=== PATIENT | female | born 1950 | race African-American/Black ===

== ENCOUNTER 2018-06-26 17:32 | Emergency (ER) | payer MEDICARE ==
[2018-06-26] MEDS ORDERED: Ondansetron PF 4 MG/2 ML Vial ONE (18:05)
[2018-06-26 18:34] LABS: #Basophils 0.1 thou/uL (0.0-0.2); #Eosinphils 0.3 thou/uL (0.0-0.7); #Lymphocytes 2.3 thou/uL (1.20-3.40); #Monocytes 0.6 thou/uL (0.11-0.59); #Neutrophils 2.6 thou/uL (1.40-6.50); %Basophils 1.2 % (0.0-1.0); %Eosinophils 5.4 % (0.0-10.0); %Lymphocytes 38.8 % (21.0-51.0); %Monocytes 10.3 % (0.0-10.0); %Neutrophils 44.3 % (42.0-75.0); Hemoglobin 12.9 g/dL (12.0-16.0); Mean Corpuscular HGB CONC 31.4 g/dL (32.0-36.0); Mean Corpuscular Hemoglobin 29.4 pg (27.0-31.0); Mean Corpuscular Volume 93.7 fL (78.0-98.0); Platelet Count 238 thou/uL (130-400); RBC Distribution Width 12.5 % (11.5-14.5); White Blood Cell (WBC) Count 5.9 thou/uL (4.8-10.8)
--- NOTE | 2018-06-26 18:50 | RAD ---
CHEST ONE VIEW: History: Dyspnea. FINDINGS: No comparison. Cardiac silhouette is magnified by projection. Pulmonary vasculature is unremarkable. Mediastinum is midline with aortic calcification. No lobar consolidation or evidence of pneumothorax. IMPRESSION: 1. Atherosclerosis. 2. No active cardiopulmonary abnormalities are demonstrated. POS: [facility]
[2018-06-26 18:54] LABS: ALT (SGPT) 12 U/L (8-55); AST (SGOT) 18 U/L (5-34); Alkaline Phosphatase 82 U/L (40-150); Anion Gap 13 mmol/L (10-20); BUN (Urea Nitrogen) 14 mg/dL (9.8-20.1); Bilirubin, Total 0.4 mg/dL (0.2-1.2); CK (CPK) 102 U/L (29-168); Calc. Creatinine Clearance 0 mL/min (70-130); Calcium 9.4 mg/dL (7.8-10.44); Carbon Dioxide 26 mmol/L (23-31); Chloride 104 mmol/L (98-107); Estimated GFR-MDRD 79; Globulin 3.2 g/dL (2.4-3.5); Glucose 118 mg/dL (80-115); Lipase 8 U/L (8-78); Potassium 3.4 mmol/L (3.5-5.1); Protein, Total 7.2 g/dL (6.0-8.3); Sodium 140 mmol/L (136-145)
--- NOTE | 2018-06-26 18:56 | CT ---
CT BRAIN NONCONTRAST: HISTORY: 68-year-old female status post syncope with nausea, emesis and dizziness. FINDINGS: There is no midline shift or any other mass effect. There is no evidence of acute intracranial hemor rhage, large cortical infarct, obstructive hydrocephalus, or extraaxial fluid collection. The calvar ium is intact. IMPRESSION: No acute intracranial findings. felicia POS: [facility]
[2018-06-26] MEDS ORDERED: Diazepam 5 MG TAB ONE (19:52)
[2018-06-26 21:29] LABS: Troponin I Less than 0.010 ng/mL (< 0.028)
== END 2018-06-26 21:20 | disposition home or self-care (01) ==
LOC: ERS 17:32
DX: R11.2 Nausea with vomiting, unspecified (principal); R55 Syncope and collapse; I10 Essential (primary) hypertension; F41.9 Anxiety disorder, unspecified; Z79.899 Other long term (current) drug therapy
CPT/HCPCS: 36415; 70450; 71045; 80053; 82550; 83690; 84484; 85025; 93005; 94760; 96374; J2405